=== PATIENT | female | born 1980 | race Caucasian/White ===

== ENCOUNTER → 2023-11-13 | Outpatient (CLI) | payer MEDICAID, SELFPAY ==
--- NOTE | 2023-11-13 08:14 | CT_ITS ---
STUDY: CT CHEST, ABDOMEN T PELVIS WITH CONTRAST REASON FOR EXAM: Female, 43 years old. RESTAGE CERVICAL CA RADIATION DOSAGE (If Supplied By Facility): CTDIvol = ( 12.56 ) mGy, DLP = ( 842.69 ) mGycm TECHNIQUE: Transaxial imaging was performed following intravenous administration of Oral and amp; IV Readi-CAT and amp; 100mL Isovue-300. Multiplanar coronal and sagittal images were reformatted. Individualized dose optimization techniques were used for this CT. COMPARISON: No relevant priors. FINDINGS: CHEST Small benign-appearing bilateral axillary lymph nodes. Emphysematous changes more prominent in the upper lobes. There is a 5.9 mm noncalcified nodule in the posterior aspect of the left upper lobe as seen on axial image #33. There is no demonstrated pleural abnormality. Normal heart and pericardium. Normal mediastinum. Normal hilar regions. Normal unenhanced pulmonary arteries. Normal aorta arch and descending thoracic aorta. There are mild degenerative changes of the thoracic spine. There is a 1.9 cm hypodense nodule in the posterior upper pole of the left kidney. This is not a cyst. This measures soft tissue density. ABDOMEN Normal liver. The patient is status post cholecystectomy. Normal spleen. Normal pancreas. There is a 3.9 cm x 3.4 cm fat-containing nodule in the right adrenal gland suggestive of a lipoma. Normal right kidney. There is a 2.3 cm x 2.2 cm solid nodule in the upper posterior aspect of the left kidney. This is not a typical cyst. Correlation with MRI is recommended. Normal visualized stomach. Normal small intestine. Normal colon. The appendix is visualized and appears normal. There is atherosclerotic calcification of the abdominal aorta, without a demonstrated aneurysm. There is an IVC filter in place. Normal retroperitoneum. There is a small umbilical hernia containing fat. The neck of the hernia measures 2.9 cm. Normal osseous structures. PELVIS Normal urinary bladder. Normal visualized small intestine. Normal visualized colon. There is no pelvic fluid. There is no pelvic lymphadenopathy or mass lesion. CT/CT Chest, Abd, Pel w/Contrast IMPRESSION: 5.9 mm noncalcified nodule in the posterior aspect of the left upper lobe. Twelve-month follow-up recommended. 3.9 cm x 3.4 cm fat-containing nodule in the right adrenal gland suggestive of a lipoma. 2.3 cm x 2.2 cm solid nodule in the upper posterior aspect of the left kidney. This is not a typical cyst. Correlation with MRI is recommended. Umbilical hernia containing fat. The neck of the hernia measures 2.9 cm. Electronically Signed: Chandrakant Mcfarland MD at 14:30 EST ,
== END | disposition home or self-care (01) ==
LOC: CT 08:14
PROVIDERS: Referring Provider Internal Medicine Medical Oncology; Visit Provider Internal Medicine Medical Oncology
DX: C53.9 Malignant neoplasm of cervix uteri, unspecified (principal); R07.9 Chest pain, unspecified
CPT/HCPCS: 71260; 74177; Q9967

== ENCOUNTER → 2023-11-24 | Outpatient (CLI) | payer MEDICAID, SELFPAY ==
--- NOTE | 2023-11-24 11:16 | MRI_ITS ---
EXAM: MR ABDOMEN WITHOUT AND WITH INTRAVENOUS CONTRAST CLINICAL INDICATION: L RENAL MASS TECHNIQUE: Multiplanar and multisequence MR images of the abdomen without and with intravenous contrast. Magnetic field strength 1.5 T. CONTRAST: 13 cc of Clariscan IV. COMPARISON: CT scan of the chest abdomen and pelvis dated 11/13/2023. FINDINGS: LOWER THORAX: Unremarkable. No pleural effusion. LIVER: Unremarkable. Normal morphology. No focal mass. GALLBLADDER AND BILE DUCTS: Cholecystectomy. No intra- or extrahepatic biliary ductal dilation. PANCREAS: Unremarkable. No focal cystic or solid mass. SPLEEN: Unremarkable. Normal size without focal cystic or solid mass. ADRENALS: Fat-containing mass measuring 4.1 x 2.8 x 3 cm right adrenal gland consistent with a myelolipoma. KIDNEYS AND URETERS: Cystic-appearing mass measuring 1.8 x 2.4 x 1.9 cm involving the upper pole of the left kidney that corresponds with the mass seen on the CT scan. This mass measured up to 68 Hounsfield units in density on the CT scan. It is characterized by high signal on T1 and T2-weighted images. Normal renal size and position. No hydronephrosis. INTRAPERITONEAL SPACE: Unremarkable. No ascites or other fluid collection. No free air. SOFT TISSUES: Small epigastric anterior abdominal wall hernia with fat within it. VASCULATURE: Unremarkable. Abdominal aorta is non-dilated. LYMPH NODES: No enlarged lymph nodes. MRI/MRI Abd WITH and W/O Contrast IMPRESSION: 1. Fat-containing mass measuring 4.1 x 2.8 x 3 cm right adrenal gland consistent with a myelolipoma. 2. Cystic mass with likely proteinaceous fluid measuring 1.8 x 2.4 x 1.9 cm upper pole left kidney. No solid mass. No follow-up necessary. 3. Small epigastric anterior abdominal wall hernia with fat within it. 4. Cholecystectomy. Electronically Signed: Justen Campuzano MD at 23:15 EDT ,
== END | disposition home or self-care (01) ==
LOC: MRI 10:58
PROVIDERS: Referring Provider Family Medicine; Visit Provider Internal Medicine Medical Oncology
DX: N28.89 Other specified disorders of kidney and ureter (principal); R10.9 Unspecified abdominal pain
CPT/HCPCS: 74183; A9575